=== PATIENT | female | born 1985 | race American Indian/Alaskan Native ===

== ENCOUNTER 2021-08-08 16:59 | Emergency (ER) | payer SELFPAY ==
[2021-08-08 18:21] VITALS: BP 111/63
--- NOTE | 2021-08-08 18:55 | Emergency Department Report ---
ED General Adult HPI - General Chief complaint: Medical Clearance Stated complaint: SUTURES BUST OPEN Time Seen by Provider: 08/08/21 18:48 Source: patient Mode of arrival: Ambulatory Limitations: No Limitations - History of Present Illness Initial comments: Patient is a 36-year-old female presents emergency room with complaints of surgical incision check. Patient had a tummy tuck and breast lift performed in [place] on 07/29/[address] Driver. Patient states that she had the drain removed approximately 5 days later. Patient states beginning yesterday she noticed some opening of her incision site and has had some clear/yellow drainage and has noticed some swelling to the abdomen and some mild redness. She denies any foul odor or purulent drainage. She denies any bleeding. She denies any fever, nausea, vomiting, diarrhea. Patient denies any other past medical history. She denies any medication allergies. Severity scale (0 -10): 4 - Related Data Previous Rx's Medication Instructions Recorded Last Taken Type Sulfamethoxazole/Trimethoprim 1 each PO BID #14 tab 08/08/21 Unknown Rx [Bactrim DS TAB] Allergies Allergy/AdvReac Type Severity Reaction Status Date / Time No Known Allergies Allergy Unverified 08/08/21 18:13 ED Review of Systems ROS: Stated complaint: SUTURES BUST OPEN Other details as noted in HPI Comment: All other systems reviewed and negative ED Past Medical Hx - Medications Home Medications: Home Medications Medication Instructions Recorded Confirmed Last Taken Type Sulfamethoxazole/Trimethoprim 1 each PO BID #14 tab 08/08/21 Unknown Rx [Bactrim DS TAB] ED Physical Exam - General Limitations: No Limitations General appearance: alert, in no apparent distress - Head Head exam: Present: atraumatic, normocephalic - Eye Eye exam: Present: normal appearance - ENT ENT exam: Present: mucous membranes moist - Neurological Exam Neurological exam: Present: alert, oriented X3 - Psychiatric Psychiatric exam: Present: normal affect, normal mood - Skin Skin exam: Present: warm, dry, other (horiztonal incision present to the lower abdomen, there is a small 1 cm opening to the middle of the incision, mild serous fluid present, no purulent drainage, there is mild edema, increased warmth, and erythema present to the midline of the lower abdomen, no fluctuance, no necrosis) ED Course Vital Signs 01/30/22 18:20 Temperature 98.7 F Pulse Rate 85 Respiratory 20 Rate Blood Pressure 111/63 [Right] O2 Sat by Pulse 100 Oximetry ED Medical Decision Making - Medical Decision Making Patient is a 36-year-old female presents emergency room with complaints of surgical incision check. Patient had a tummy tuck and breast lift performed in [place] on 07/29/[address] Driver. Patient states that she had the drain removed approximately 5 days later. Patient states beginning yesterday she noticed some opening of her incision site and has had some clear/yellow drainage and has noticed some swelling to the abdomen and some mild redness. She denies any foul odor or purulent drainage. She denies any bleeding. She denies any fever, nausea, vomiting, diarrhea. Patient denies any other past medical history. She denies any medication allergies. Vitals are normal. On exam:horiztonal incision present to the lower abdomen, there is a small 1 cm opening to the middle of the incision, mild serous fluid present, no purulent drainage, there is mild edema, increased warmth, and erythema present to the midline of the lower abdomen, no fluctuance, no necrosis. Examination appears consistent with mild cellulitis, there is no obvious abscess at this time, no significant wound dehiscence. Discussed case with Dr. Bianca Hussein, ER attending who evaluated patient at bedside and states that patient can go home on p.o. antibiotics and she advised patient to follow-up with her surgeon and she discussed return precautions. Advised patient Please take medication as prescribed. Please keep areas clean, dry, covered. May wash around areas with antibacterial soap and water and pat dry. Please follow-up with your surgeon. Return to emergency room for any new or worsening symptoms. Critical care attestation.: If time is entered above; I have spent that time in minutes in the direct care of this critically ill patient, excluding procedure time. ED Disposition Clinical Impression: Cellulitis Qualifiers: Site of cellulitis: trunk Site of cellulitis of trunk: abdominal wall Qualified Code(s): L03.311 - Cellulitis of abdominal wall Disposition: HOME / SELF CARE / HOMELESS Is pt being admited?: No Does the pt Need Aspirin: No Condition: Stable Instructions: Cellulitis, Adult Additional Instructions: Please take medication as prescribed. Please keep areas clean, dry, covered. May wash around areas with antibacterial soap and water and pat dry. Please follow-up with your surgeon. Return to emergency room for any new or worsening symptoms. Prescriptions: Sulfamethoxazole/Trimethoprim [Bactrim DS TAB] 1 each PO BID #14 tab Referrals: your, surgeon [Other] - 3-5 Days Time of Disposition: 18:55 Print Language: ITALIAN
== END 2021-08-08 19:30 | disposition home or self-care (01) ==
LOC: ED 16:59
DX: L03.311 Cellulitis of abdominal wall (principal); Z79.899 Other long term (current) drug therapy
CPT/HCPCS: 99282